=== PATIENT | male | born 1975 | race African-American/Black ===

== ENCOUNTER 2018-01-10 21:25 | Emergency (ER) | payer OTHER ==
[2018-01-10] MEDS ORDERED: NORMAL SALINE 1000 ML 1,000 ML IV ONE (22:57)
[2018-01-10] MEDS ORDERED: ONDANSETRON 4 MG TAB.RAPDIS PO ONE (22:57)
--- NOTE | 2018-01-10 23:00 | ER Document Report ---
ED Medical Screen (RME) - General Chief Complaint: Dizzy, weak, shaky, feels dehydrated Stated Complaint: POSSIBLE DEHYDRATION Time Seen by Provider: 01/10/18 22:54 Mode of Arrival: Ambulatory Information source: Patient Notes: Patient is a 42-year-old male who presents with chief complaint of nausea, dizziness, muscle cramps and sweats. Patient reports that he was outside all day in the hot sun and reports that all of his symptoms started at approximately 8 PM. Patient denies any syncope or loss of consciousness. Patient reports that he has vomited 1. Patient reports past medical history of chronic back pain for which she has a nerve stimulator placed as well as migraine headaches and kidney stones. Exam: Lung sounds clear to auscultation bilaterally. No wheezes or rhonchi noted. Abdomen is soft, nontender, no guarding no rebound no peritoneal signs. Skin is warm and dry, skin turgor normal. Heart sounds S1-S2 present normal rate, no murmurs appreciated. I have greeted and performed a rapid initial assessment of this patient. A comprehensive ED assessment and evaluation of the patient, analysis of test results and completion of the medical decision making process will be conducted by additional ED providers. Dictation of this chart was performed using voice recognition software; therefore, there may be some unintended grammatical errors. TRAVEL OUTSIDE OF THE [place] IN LAST 30 DAYS: No - Related Data Allergies/Adverse Reactions: shellfish derived Allergy (Verified 01/10/18 21:35) Doctor's Discharge - Discharge Referrals: ANGELINA MORILLO DO [Primary Care Provider] - Follow up as needed
[2018-01-11 00:12] LABS: ALANINE AMINOTRANSFERASE 28 U/L (21-72); ALBUMIN 4.2 g/dL (3.5-5.0); ALKALINE PHOSPHATASE 65 U/L (38-126); ANION GAP 10 (5-19); ASPARTATE AMINO TRANSFERASE 22 U/L (17-59); BILIRUBIN,DIRECT 0.4 mg/dL (0.0-0.4); BILIRUBIN,TOTAL 0.7 mg/dL (0.2-1.3); BLOOD UREA NITROGEN 19 mg/dL (7-20); CALCIUM 9.2 mg/dL (8.4-10.2); CARBON DIOXIDE 27 mmol/L (22-30); CHLORIDE 108 mmol/L (98-107); CREATINE KINASE 192 U/L (55-170); GLUCOSE 96 mg/dL (75-110); POTASSIUM 3.8 mmol/L (3.6-5.0); SODIUM 145.1 mmol/L (137-145); TOTAL PROTEIN 7.5 g/dL (6.3-8.2)
--- NOTE | 2018-01-11 00:17 | ER Document Report ---
ED General - General Chief Complaint: Dizzy, weak, shaky, feels dehydrated Stated Complaint: POSSIBLE DEHYDRATION Time Seen by Provider: 01/10/18 22:54 Mode of Arrival: Ambulatory Notes: Patient is a 42-year-old male without chronic medical problems who presents with feelings of body aches, generalized weakness and lightheadedness. The patient states that he was outside working all day, continue to run errands after completing his work day without drinking significant amounts of fluid. He states while he was in a store he began to feel abruptly nauseated and somewhat lightheaded. He then had an episode of vomiting. Patient states that when his symptoms did not improve over the next several minutes he contacted a friend who brought him here to the emergency department. He denies any history of similar symptoms in the past. He states he feels somewhat better after beginning to receive IV fluids. Nothing worsened symptoms when they were present. He denies any headache, chest pain, shortness of breath, syncope, focal weakness or numbness. He has not contacted his primary doctor regarding today's concerns. TRAVEL OUTSIDE OF THE [place] IN LAST 30 DAYS: No - Related Data Allergies/Adverse Reactions: shellfish derived Allergy (Verified 01/10/18 21:35) Past Medical History - General Information source: Patient - Social History Smoking Status: Never Smoker Frequency of alcohol use: None Drug Abuse: None Lives with: Family Family History: Reviewed & Not Pertinent Patient has suicidal ideation: No Patient has homicidal ideation: No Renal/ Medical History: Denies: Hx Peritoneal Dialysis Review of Systems - Review of Systems Notes: Constitutional: Negative for fever. HENT: Negative for sore throat. Eyes: Negative for visual changes. Cardiovascular: Negative for chest pain. Respiratory: Negative for shortness of breath. Gastrointestinal: Positive for nausea and vomiting Genitourinary: Negative for dysuria. Musculoskeletal: Positive for generalized body aches Skin: Negative for rash. Neurological: Negative for headaches, weakness or numbness. 10 point ROS negative except as marked above and in HPI. Physical Exam - Vital signs Vitals: Temp Pulse Resp BP Pulse Ox 97.9 F 68 17 115/75 99 01/11/18 00:34 01/11/18 00:34 01/11/18 00:34 01/11/18 00:34 01/11/18 00:34 Interpretation: Normal Notes: PHYSICAL EXAMINATION: GENERAL: Well-appearing, well-nourished and in no acute distress. HEAD: Atraumatic, normocephalic. EYES: Pupils equal round and reactive to light, extraocular movements intact, sclera anicteric, conjunctiva are normal. ENT: nares patent, oropharynx clear without exudates. Mildly dry mucous membranes. NECK: Normal range of motion, supple without lymphadenopathy LUNGS: Breath sounds clear to auscultation bilaterally and equal. No wheezes rales or rhonchi. HEART: Regular rate and rhythm without murmurs ABDOMEN: Soft, nontender, normoactive bowel sounds. No guarding, no rebound. No masses appreciated. EXTREMITIES: Normal range of motion, no pitting or edema. No cyanosis. NEUROLOGICAL: Face symmetric. Tongue protrudes midline. Extraocular motions intact. Pupils are 2 mm and equally reactive. Normal speech, normal gait. 5 out of 5 strength in both the distal and proximal upper and lower extremities bilaterally. Sensation is grossly intact throughout. Finger to nose testing normal. Pronator drift normal. PSYCH: Normal mood, normal affect. SKIN: Warm, Dry, normal turgor, no rashes or lesions noted. Course - Re-evaluation Re-evalutation: 01/11/18 00:15 Patient presents with feeling tremulous, weak, having nausea and vomiting after being out in the heat all day. At time of my evaluation the patient's vitals are within normal limits, he is in no distress, tolerating oral intake without difficulty. He did not have an episode of syncope today. His laboratories are unremarkable without evidence of acute rhabdomyolysis or acute kidney injury. He denies any focal abdominal pain, chest pain or shortness of breath. Clinical history is not consistent with an acute pulmonary embolus, ACS, or any acute intra-abdominal pathology based on his vitals, exam and history. He has improved after receiving IV fluids. At this time will discharge with return precautions and follow-up recommendations. Verbal discharge instructions given a the bedside and opportunity for questions given. Medication warnings reviewed. Patient is in agreement with this plan and has verbalized understanding of return precautions and the need for primary care follow-up in the next 24-72 hours. - Vital Signs Vital signs: Temp Pulse Resp BP Pulse Ox 97.9 F 68 17 115/75 99 01/11/18 00:34 01/11/18 00:34 01/11/18 00:34 01/11/18 00:34 01/11/18 00:34 - Laboratory Result Diagrams: 01/10/18 23:45 Laboratory results interpreted by me: 01/10/18 23:45 Sodium 145.1 H Chloride 108 H Creatine Kinase 192 H Discharge - Discharge Clinical Impression: Lightheadedness, Body aches Nausea and vomiting Qualifiers: Vomiting type: unspecified Vomiting Intractability: non-intractable Qualified Code(s): R11.2 - Nausea with vomiting, unspecified Heat exposure Qualifiers: Encounter type: initial encounter Qualified Code(s): T67.9XXA - Effect of heat and light, unspecified, initial encounter Condition: Good Disposition: HOME, SELF-CARE Additional Instructions: Please be sure to drink plenty of fluids while out in the heat. You can purchase packets of electrolyte replacement solutions such as Pedialyte or propel that you can add to plain water. This will help to make sure that you are getting adequate electrolytes in addition to fluids while working outside. Please return to the emergency department if you pass out, developed diffuse muscle cramping, have persistent vomiting, or have any other symptoms that are worrisome to you. Referrals: ANGELINA MORILLO, [NO LOCAL MD] - Follow up as needed
[2018-01-11 00:36] VITALS: BP 115/75
== END 2018-01-11 00:34 | disposition home or self-care (01) ==
LOC: ER 21:25
DX: T67.9XXA Effect of heat and light, unspecified, initial encounter (principal); X30.XXXA Exposure to excessive natural heat, initial encounter; R53.1 Weakness; R11.2 Nausea with vomiting, unspecified; R42 Dizziness and giddiness; R52 Pain, unspecified; Z91.013 Allergy to seafood
CPT/HCPCS: 99284; 96360; 36415; 82550; 80053; S0119; J7030

== ENCOUNTER 2018-07-26 22:02 | Emergency (ER) | payer OTHER ==
[2018-07-26 22:41] VITALS: BP 110/72
== END 2018-07-26 23:55 | disposition left against medical advice (07) ==
LOC: ER 22:02
DX: Z53.21 Procedure and treatment not carried out due to patient leaving prior to being seen by health care provider (principal)